=== PATIENT | female | born 1960 | race American Indian/Alaskan Native ===

== ENCOUNTER 2017-01-16 19:32 | Emergency (ER) | payer MEDICARE ==
[2017-01-16 19:58] VITALS: BP 147/101
[2017-01-16 20:48] LABS: Anion Gap 16 mmol/L; Blood Urea Nitrogen 4 mg/dL (7-17); Calcium 9.5 mg/dL (8.4-10.2); Carbon Dioxide 31 mmol/L (22-30); Chloride 98.5 mmol/L (98-107); Glucose 97 mg/dL (65-100); Potassium 4.3 mmol/L (3.6-5.0); Sodium 141 mmol/L (137-145)
[2017-01-16 21:01] LABS: Basophils % (Auto) 0.7 % (0.0-1.8); Eosinophils % (Auto) 3.8 % (0.0-4.3); Hematocrit 41.7 % (30.3-42.9); Mean Corpuscular HGB Conc 34 % (30-34); Mean Corpuscular Hemoglobin 30 pg (28-32); Mean Corpuscular Volume 89 fl (79-97); Platelet Count 285 K/mm3 (140-440); Red Blood Count 4.68 M/mm3 (3.65-5.03); Red Cell Distribution Width 13.1 % (13.2-15.2); White Blood Count 9.7 K/mm3 (4.5-11.0)
[2017-01-16 21:14] LABS: Bacteria,Urine 1+ /HPF (Negative); Bilirubin,Urine NEG (Negative); Blood,Urine MOD (Negative); Ketones,Urine NEG (Negative); Leukocyte Esterase,Urine LG (Negative); Mucus,Urine FEW /HPF; Nitrite,Urine POS (Negative)
--- NOTE | 2017-01-16 22:19 | Emergency Department Report ---
ED Female HPI - General Chief complaint: Urogenital-Female Stated complaint: VAG BLEEDING/PAIN/BACK PAIN Time Seen by Provider: 01/16/17 22:10 Source: patient Mode of arrival: Ambulatory Limitations: No Limitations - History of Present Illness Initial comments: 56-year-old -[place] female comes in with a complaint of dysuria and lower back pain and pain with urination. She reports she is sexually active with one partner. She does admit that after having intercourse she just lays here. She complains of urgency frequency. On the medication she takes a tramadol for chronic back pain. Patient denies any vaginal bleeding or vaginal discharge. MD Complaint: dysuria, pelvic pain - Related Data Previous Rx's Medication Instructions Recorded Last Taken Type Fluconazole [Diflucan TAB] 150 mg PO ONCE #1 tablet 07/27/16 Unknown Rx HYDROcodone/APAP 5-325 [[place] 1 each PO Q6HR PRN #7 tablet 07/27/16 Unknown Rx 5/325] Sulfamethoxazole/Trimethoprim 1 each PO BID #14 tablet 07/27/16 Unknown Rx [Bactrim DS TAB] Nitrofurantoin [place]/M-Cryst 100 mg PO Q12HR #14 capsule 01/16/17 Unknown Rx [Macrobid CAP] Phenazopyridine [Pyridium] 100 mg PO TID #9 tab 01/16/17 Unknown Rx Allergies Allergy/AdvReac Type Severity Reaction Status Date / Time No Known Allergies Allergy Unverified 08/05/13 12:50 ED Review of Systems ROS: Stated complaint: VAG BLEEDING/PAIN/BACK PAIN Other details as noted in HPI Constitutional: denies: chills, fever ENT: denies: ear pain, throat pain Respiratory: denies: cough, shortness of breath, wheezing Cardiovascular: denies: chest pain, palpitations Endocrine: no symptoms reported Gastrointestinal: denies: abdominal pain, nausea, diarrhea Genitourinary: urgency, dysuria, frequency, hematuria Musculoskeletal: other (flank pain) Neurological: denies: headache, weakness, paresthesias Psychiatric: denies: anxiety, depression Hematological/Lymphatic: denies: easy bleeding, easy bruising ED Past Medical Hx - Past Medical History Previous Medical History?: No - Surgical History Past Surgical History?: Yes Additional Surgical History: left ankle surgery. - Social History Smoking Status: Never Smoker Substance Use Type: None - Medications Home Medications: Home Medications Medication Instructions Recorded Confirmed Last Taken Type Fluconazole [Diflucan TAB] 150 mg PO ONCE #1 tablet 07/27/16 Unknown Rx HYDROcodone/APAP 5-325 [[place] 1 each PO Q6HR PRN #7 tablet 07/27/16 Unknown Rx 5/325] Sulfamethoxazole/Trimethoprim 1 each PO BID #14 tablet 07/27/16 Unknown Rx [Bactrim DS TAB] Nitrofurantoin [place]/M-Cryst 100 mg PO Q12HR #14 capsule 01/16/17 Unknown Rx [Macrobid CAP] Phenazopyridine [Pyridium] 100 mg PO TID #9 tab 01/16/17 Unknown Rx ED Physical Exam - General Limitations: No Limitations General appearance: alert, in no apparent distress - Head Head exam: Present: atraumatic, normocephalic - Eye Eye exam: Present: normal appearance - ENT ENT exam: Present: mucous membranes moist - Cardiovascular Cardiovascular Exam: Present: regular rate, normal rhythm. Absent: systolic murmur, diastolic murmur, rubs, gallop - GI/Abdominal GI/Abdominal exam: Present: soft, tenderness (pelvic tenderness), normal bowel sounds - Extremities Exam Extremities exam: Present: normal inspection ED Course Vital Signs 01/16/17 19:51 Temperature 98.4 F Pulse Rate 85 Respiratory 18 Rate Blood Pressure 147/101 Blood Pressure 147/101 [Left] O2 Sat by Pulse 98 Oximetry ED Medical Decision Making - Lab Data Result diagrams: 01/16/17 20:12 01/16/17 20:12 - Medical Decision Making Patient's been evaluated by this provider fast track. Discussed the patient she has a urinary tract infection. Discussed the patient that she needs to void after having sexual intercourse. Discussed patient to take medication as prescribed and she can follow up with her primary care doctor within 5-7 days if symptoms has not improved. Patient verbalized understanding Critical care attestation.: If time is entered above; I have spent that time in minutes in the direct care of this critically ill patient, excluding procedure time. ED Disposition Clinical Impression: UTI (urinary tract infection) Qualifiers: Urinary tract infection type: site unspecified Hematuria presence: with hematuria Qualified Code(s): N39.0 - Urinary tract infection, site not specified ; R31.9 - Hematuria, unspecified Disposition: DISCHARGED TO HOME OR SELFCARE Is pt being admited?: No Does the pt Need Aspirin: No Condition: Stable Instructions: Urinary Tract Infection in Women (ED) Additional Instructions: Please take antibiotics as prescribed. Please void after having sexual intercourse. Follow-up to primary care provider in 5-7 days if symptoms persists or gets worse. Prescriptions: Nitrofurantoin [place]/M-Cryst [Macrobid CAP] 100 mg PO Q12HR #14 capsule Phenazopyridine [Pyridium] 100 mg PO TID #9 tab Referrals: FRITZ HALL DO [Primary Care Provider] - 3-5 Days Forms: Work/School Release Form(ED)
== END 2017-01-16 22:26 | disposition home or self-care (01) ==
LOC: ED 19:32
DX: N39.0 Urinary tract infection, site not specified (principal); R31.9 Hematuria, unspecified
CPT/HCPCS: 36415; 80048; 81001; 81025; 85025; 87076; 87086; 87186; 99283

== ENCOUNTER 2017-03-31 09:11 | Emergency (ER) | payer MEDICARE ==
--- NOTE | 2017-03-31 12:13 | Emergency Department Report ---
ED General Adult HPI - General Chief complaint: Skin/Abscess/Foreign Body Stated complaint: QTIP STUCK IN RT EAR/ EYE SWOLLEN Time Seen by Provider: 03/31/17 12:07 Source: patient Mode of arrival: Ambulatory Limitations: No Limitations - History of Present Illness Initial comments: foreign body left ear x 1 week Onset/Timin -: week(s) Location: right (right ear ) Radiation: non-radiation Severity scale (0 -10): 3 Quality: aching Consistency: intermittent Improves with: none Worsens with: none Associated Symptoms: denies other symptoms Treatments Prior to Arrival: none - Related Data Previous Rx's Medication Instructions Recorded Last Taken Type Fluconazole [Diflucan TAB] 150 mg PO ONCE #1 tablet 07/27/16 Unknown Rx HYDROcodone/APAP 5-325 [[place] 1 each PO Q6HR PRN #7 tablet 07/27/16 Unknown Rx 5/325] Sulfamethoxazole/Trimethoprim 1 each PO BID #14 tablet 07/27/16 Unknown Rx [Bactrim DS TAB] Nitrofurantoin [place]/M-Cryst 100 mg PO Q12HR #14 capsule 01/16/17 Unknown Rx [Macrobid CAP] Phenazopyridine [Pyridium] 100 mg PO TID #9 tab 01/16/17 Unknown Rx Cipro/Dexameth 0.3/0.1% [Ciprodex 4 drops OT BID #1 bottle 03/31/17 Unknown Rx OTIC] Allergies Allergy/AdvReac Type Severity Reaction Status Date / Time No Known Allergies Allergy Unverified 08/05/13 12:50 ED Review of Systems ROS: Stated complaint: QTIP STUCK IN RT EAR/ EYE SWOLLEN Other details as noted in HPI Constitutional: denies: chills, fever Eyes: denies: eye pain, eye discharge, vision change ENT: other (foreign body right ear ) Respiratory: denies: cough, shortness of breath, wheezing Cardiovascular: denies: chest pain, palpitations Endocrine: no symptoms reported Gastrointestinal: denies: abdominal pain, nausea, diarrhea Genitourinary: denies: urgency, dysuria, discharge Musculoskeletal: denies: back pain, joint swelling, arthralgia Skin: denies: rash, lesions Neurological: denies: headache, weakness, paresthesias Psychiatric: denies: anxiety, depression Hematological/Lymphatic: denies: easy bleeding, easy bruising ED Past Medical Hx - Past Medical History Previous Medical History?: No - Surgical History Past Surgical History?: Yes Additional Surgical History: left ankle surgery. - Social History Smoking Status: Never Smoker Substance Use Type: None - Medications Home Medications: Home Medications Medication Instructions Recorded Confirmed Last Taken Type Fluconazole [Diflucan TAB] 150 mg PO ONCE #1 tablet 07/27/16 Unknown Rx HYDROcodone/APAP 5-325 [[place] 1 each PO Q6HR PRN #7 tablet 07/27/16 Unknown Rx 5/325] Sulfamethoxazole/Trimethoprim 1 each PO BID #14 tablet 07/27/16 Unknown Rx [Bactrim DS TAB] Nitrofurantoin [place]/M-Cryst 100 mg PO Q12HR #14 capsule 01/16/17 Unknown Rx [Macrobid CAP] Phenazopyridine [Pyridium] 100 mg PO TID #9 tab 01/16/17 Unknown Rx Cipro/Dexameth 0.3/0.1% [Ciprodex 4 drops OT BID #1 bottle 03/31/17 Unknown Rx OTIC] ED Physical Exam - General Limitations: No Limitations General appearance: alert, in no apparent distress - Head Head exam: Present: atraumatic - Eye Eye exam: Present: normal appearance - ENT ENT exam: Present: mucous membranes moist, other (foreign body right ear ) - Neck Neck exam: Present: normal inspection, full ROM. Absent: tenderness, lymphadenopathy, thyromegaly - Respiratory Respiratory exam: Present: normal lung sounds bilaterally. Absent: respiratory distress - Cardiovascular Cardiovascular Exam: Present: regular rate, normal rhythm. Absent: systolic murmur, diastolic murmur, rubs, gallop - GI/Abdominal GI/Abdominal exam: Present: soft, normal bowel sounds - Rectal Rectal exam: Present: deferred - Extremities Exam Extremities exam: Present: normal inspection - Back Exam Back exam: Present: normal inspection - Neurological Exam Neurological exam: Present: alert, oriented X3 - Psychiatric Psychiatric exam: Present: normal affect, normal mood - Skin Skin exam: Present: warm, dry, intact, normal color. Absent: rash ED Course Vital Signs 03/31/17 09:14 Temperature 98.8 F Pulse Rate 76 Respiratory 20 Rate Blood Pressure 138/98 O2 Sat by Pulse 99 Oximetry - Foreign Body Removal Ear Location: ear canal (R) Foreign Body Suspected: other (qtip) If Insect Suspected: ear canal inspected-intac Foreign Body Removed: yes Foreign Body Removal Technique: instrumentation Tympanic Membrane Intact: Yes Patient Tolerated Procedure: well Complications: none Additional Comments: q tip removed intact tm and canal moderate erythema and swelling no tinnitis no bleeding ED Medical Decision Making - Medical Decision Making pt presents for qtip lodged in right ear x 1 week same removed with alligator clamp pt tolerated same with minimal distress, plan ciprodex eardrops x 5 days follwo up with primary care doctor next week as scheduled , pt verbalized understanding and agreement with treatment plan. Critical care attestation.: If time is entered above; I have spent that time in minutes in the direct care of this critically ill patient, excluding procedure time. ED Disposition Clinical Impression: Foreign body in right ear, initial encounter Qualifiers: Encounter type: initial encounter Qualified Code(s): T16.1XXA - Foreign body in right ear, initial encounter Disposition: DC-01 TO HOME OR SELFCARE Is pt being admited?: No Does the pt Need Aspirin: No Condition: Good Instructions: Ear Foreign Body (ED) Prescriptions: Cipro/Dexameth 0.3/0.1% [Ciprodex OTIC] 4 drops OT BID #1 bottle Referrals: PRIMARY CARE, [Primary Care Provider] - 3-5 Days Forms: Work/School Release Form(ED) Time of Disposition: 12:16
[2017-03-31 12:32] VITALS: BP 129/88
== END 2017-03-31 12:32 | disposition home or self-care (01) ==
LOC: ED 09:11
DX: T16.1XXA Foreign body in right ear, initial encounter (principal); X58.XXXA Exposure to other specified factors, initial encounter; Y93.89 Activity, other specified; Y99.9 Unspecified external cause status; Y92.89 Other specified places as the place of occurrence of the external cause

== ENCOUNTER 2018-06-22 12:24 | Emergency (ER) | payer MEDICARE ==
[2018-06-22 12:40] VITALS: BP 127/85
[2018-06-22] MEDS ORDERED: BACTRIM DS PO ONE (13:17)
[2018-06-22] MEDS ORDERED: PYRIDIUM PO ONE (13:17)
--- NOTE | 2018-06-22 13:22 | Emergency Department Report ---
ED Female HPI - General Chief complaint: Urogenital-Female Stated complaint: LOWER BACK PAIN Time Seen by Provider: 06/22/18 13:09 Source: patient Mode of arrival: Ambulatory Limitations: No Limitations - History of Present Illness Initial comments: Ms. Carpenter is a 57 yo female with presents with dysuria, bloody cloudy urine. Frequent urination. No fever +malaise. Patient has chronic back pain due to previous injury which is unchanged. MD Complaint: dysuria -: Gradual, days(s) (2) Severity: moderate Quality: stabbing Worsens with: urination Associated Symptoms: denies other symptoms - Related Data Previous Rx's Medication Instructions Recorded Last Taken Type Fluconazole [Diflucan TAB] 150 mg PO ONCE #1 tablet 07/27/16 Unknown Rx HYDROcodone/APAP 5-325 [[place] 1 each PO Q6HR PRN #7 tablet 07/27/16 Unknown Rx 5/325] Sulfamethoxazole/Trimethoprim 1 each PO BID #14 tablet 07/27/16 Unknown Rx [Bactrim DS TAB] Nitrofurantoin [place]/M-Cryst 100 mg PO Q12HR #14 capsule 01/16/17 Unknown Rx [Macrobid CAP] Phenazopyridine [Pyridium] 100 mg PO TID #9 tab 01/16/17 Unknown Rx Cipro/Dexameth 0.3/0.1% [Ciprodex 4 drops OT BID #1 bottle 03/31/17 Unknown Rx OTIC] Phenazopyridine [Pyridium] 200 mg PO TID 2 Days #6 tab 06/22/18 Unknown Rx Sulfamethoxazole/Trimethoprim 1 each PO BID 5 Days #10 tablet 06/22/18 Unknown Rx [Bactrim DS TAB] Allergies Allergy/AdvReac Type Severity Reaction Status Date / Time No Known Allergies Allergy Unverified 08/05/13 12:50 ED Review of Systems ROS: Stated complaint: LOWER BACK PAIN Other details as noted in HPI Constitutional: malaise. denies: fever Cardiovascular: denies: chest pain Gastrointestinal: denies: abdominal pain, nausea, vomiting Neurological: denies: numbness, paresthesias, confusion ED Past Medical Hx - Past Medical History Previous Medical History?: No - Surgical History Past Surgical History?: Yes Additional Surgical History: left ankle surgery. - Social History Smoking Status: Never Smoker Substance Use Type: None - Medications Home Medications: Home Medications Medication Instructions Recorded Confirmed Last Taken Type Fluconazole [Diflucan TAB] 150 mg PO ONCE #1 tablet 07/27/16 Unknown Rx HYDROcodone/APAP 5-325 [[place] 1 each PO Q6HR PRN #7 tablet 07/27/16 Unknown Rx 5/325] Sulfamethoxazole/Trimethoprim 1 each PO BID #14 tablet 07/27/16 Unknown Rx [Bactrim DS TAB] Nitrofurantoin [place]/M-Cryst 100 mg PO Q12HR #14 capsule 01/16/17 Unknown Rx [Macrobid CAP] Phenazopyridine [Pyridium] 100 mg PO TID #9 tab 01/16/17 Unknown Rx Cipro/Dexameth 0.3/0.1% [Ciprodex 4 drops OT BID #1 bottle 03/31/17 Unknown Rx OTIC] Phenazopyridine [Pyridium] 200 mg PO TID 2 Days #6 tab 06/22/18 Unknown Rx Sulfamethoxazole/Trimethoprim 1 each PO BID 5 Days #10 tablet 06/22/18 Unknown Rx [Bactrim DS TAB] ED Physical Exam - General Limitations: No Limitations General appearance: alert, in no apparent distress - Head Head exam: Present: atraumatic, normocephalic - Eye Eye exam: Present: normal appearance - ENT ENT exam: Present: mucous membranes moist - Neck Neck exam: Present: normal inspection. Absent: tenderness, meningismus - Respiratory Respiratory exam: Present: normal lung sounds bilaterally. Absent: respiratory distress, wheezes, rales, rhonchi - Cardiovascular Cardiovascular Exam: Present: regular rate, normal rhythm, normal heart sounds. Absent: systolic murmur, diastolic murmur, rubs, gallop - GI/Abdominal GI/Abdominal exam: Present: soft, normal bowel sounds. Absent: distended, tenderness, guarding, rebound - Extremities Exam Extremities exam: Present: normal inspection - Back Exam Back exam: Present: normal inspection, full ROM. Absent: tenderness, CVA tenderness (R), CVA tenderness (L) - Neurological Exam Neurological exam: Present: alert, oriented X3, normal gait - Psychiatric Psychiatric exam: Present: normal affect, normal mood - Skin Skin exam: Present: warm, dry, intact, normal color. Absent: rash ED Course Vital Signs 06/22/18 12:36 Temperature 98.6 F Pulse Rate 99 H Respiratory 18 Rate Blood Pressure 127/85 O2 Sat by Pulse 98 Oximetry ED Medical Decision Making - Medical Decision Making UTI, no not suspect pyelonephritis without fever or new back pain. rx: bactrim , pyridium I reviewed urine culture results from 01/2017, patient has pansensitive E. coli at that time Critical care attestation.: If time is entered above; I have spent that time in minutes in the direct care of this critically ill patient, excluding procedure time. ED Disposition Clinical Impression: UTI (urinary tract infection) Disposition: TO HOME OR SELFCARE Is pt being admited?: No Does the pt Need Aspirin: No Condition: Stable Instructions: Urinary Tract Infection in Women (ED) Prescriptions: Phenazopyridine [Pyridium] 200 mg PO TID 2 Days #6 tab Sulfamethoxazole/Trimethoprim [Bactrim DS TAB] 1 each PO BID 5 Days #10 tablet Referrals: PRIMARY CARE, [Primary Care Provider] - 3-5 Days
[2018-06-22 13:41] LABS: Bilirubin,Urine NEG (Negative); Blood,Urine LG (Negative); Color,Urine Yellow (Yellow); Urobilinogen,Urine < 2.0 mg/dL (<2.0)
[2018-06-22 13:43] LABS: RBC,Urine > 182.0 /HPF (0.0-6.0); WBC,Urine > 182.0 /HPF (0.0-6.0)
== END 2018-06-22 13:55 | disposition home or self-care (01) ==
LOC: ED 12:24
DX: N39.0 Urinary tract infection, site not specified (principal)
CPT/HCPCS: 81001; 99283

== ENCOUNTER 2019-03-03 06:11 | Emergency (ER) | payer MEDICARE ==
[2019-03-03 07:16] LABS: Bilirubin,Urine NEG (Negative); Blood,Urine LG (Negative); Color,Urine Red (Yellow); Urobilinogen,Urine < 2.0 mg/dL (<2.0)
[2019-03-03 07:21] LABS: Basophils # (Auto) 0.1 K/mm3 (0.0-0.1); Basophils % (Auto) 1.3 % (0.0-1.8); Eosinophils # (Auto) 0.5 K/mm3 (0.0-0.4); Eosinophils % (Auto) 6.8 % (0.0-4.3); Hematocrit 41.8 % (30.3-42.9); Hemoglobin 14.2 gm/dl (10.1-14.3); Lymphocytes # (Auto) 2.6 K/mm3 (1.2-5.4); Lymphocytes % (Auto) 33.8 % (13.4-35.0); Mean Corpuscular HGB Conc 34 % (30-34); Mean Corpuscular Volume 91 fl (79-97); Monocytes # (Auto) 0.6 K/mm3 (0.0-0.8); Platelet Count 319 K/mm3 (140-440); Red Blood Count 4.62 M/mm3 (3.65-5.03); Red Cell Distribution Width 13.6 % (13.2-15.2)
[2019-03-03 07:26] LABS: RBC,Urine > 182.0 /HPF (0.0-6.0); WBC,Urine > 182.0 /HPF (0.0-6.0)
[2019-03-03] MEDS ORDERED: ZOFRAN IV ONE (07:28)
[2019-03-03] MEDS ORDERED: DILAUDID IV ONE (07:28)
[2019-03-03] MEDS ORDERED: ROCEPHIN/NS 1 GM/50 ML 1 GM/50 ML BAG IV ONE (07:32)
[2019-03-03] MEDS ORDERED: TORADOL IV ONE (07:36)
--- NOTE | 2019-03-03 07:37 | Emergency Department Report ---
ED Female HPI - General Chief complaint: Abdominal Pain Stated complaint: BLEEDING/PAIN IN PELVIC AREA Time Seen by Provider: 03/03/19 07:21 Source: patient Mode of arrival: Ambulatory Limitations: No Limitations - History of Present Illness Initial comments: 58 year old female with a past medical history of chronic back pain and previous presents to the Hospital complaining of fever to don a pain and hematuria. Patient started to have pink urine yesterday which worsened to gross hematuria today. Patient has also had been intermittent suprapubic sharp and stabbing pain for the last 2 days with a palpation. Pain is rated 10/10 intens ity without alleviating factors reported. Patient denies nausea, vomiting, fever, or back pain. Patient was here in June 2018 with similar symptoms with diagnosis of UTI. She states that her hematuria this time is worse than her previous episode. Patient presents with elevated blood pressure and states that she does not have a history of hypertension and suspects that the elevation is secondary to pain. Patient takes baby aspirin daily and denies any anticoagulant use - Related Data Previous Rx's Medication Instructions Recorded Last Taken Type Fluconazole [Diflucan TAB] 150 mg PO ONCE #1 tablet 07/27/16 Unknown Rx HYDROcodone/APAP 5-325 [[place] 1 each PO Q6HR PRN #7 tablet 07/27/16 Unknown Rx 5/325] Nitrofurantoin [place]/M-Cryst 100 mg PO Q12HR #14 capsule 01/16/17 Unknown Rx [Macrobid CAP] Phenazopyridine [Pyridium] 100 mg PO TID #9 tab 01/16/17 Unknown Rx Cipro/Dexameth 0.3/0.1% [Ciprodex 4 drops OT BID #1 bottle 03/31/17 Unknown Rx OTIC] Phenazopyridine [Pyridium] 200 mg PO TID 2 Days #6 tab 06/22/18 Unknown Rx Sulfamethoxazole/Trimethoprim 1 each PO BID 5 Days #10 tablet 06/22/18 Unknown Rx [Bactrim DS TAB] HYDROcodone/APAP 5-325 [[place] 1 each PO Q6HR PRN #15 tablet 03/03/19 Unknown Rx 5/325] Ibuprofen [Motrin] 800 mg PO Q8HR PRN #30 tablet 03/03/19 Unknown Rx Ondansetron [Zofran Odt] 4 mg PO Q8HR PRN #20 tab.rapdis 03/03/19 Unknown Rx Sulfamethoxazole/Trimethoprim 1 each PO BID #14 tablet 03/03/19 Unknown Rx [Bactrim DS TAB] Allergies Allergy/AdvReac Type Severity Reaction Status Date / Time No Known Allergies Allergy Unverified 08/05/13 12:50 ED Review of Systems ROS: Stated complaint: BLEEDING/PAIN IN PELVIC AREA Other details as noted in HPI Comment: All other systems reviewed and negative ED Past Medical Hx - Past Medical History Previous Medical History?: Yes Additional medical history: Chronic Back Pain - Surgical History Past Surgical History?: Yes Additional Surgical History: left ankle surgery. - Social History Smoking Status: Never Smoker Substance Use Type: None - Medications Home Medications: Home Medications Medication Instructions Recorded Confirmed Last Taken Type Fluconazole [Diflucan TAB] 150 mg PO ONCE #1 tablet 07/27/16 Unknown Rx HYDROcodone/APAP 5-325 [[place] 1 each PO Q6HR PRN #7 tablet 07/27/16 Unknown Rx 5/325] Nitrofurantoin [place]/M-Cryst 100 mg PO Q12HR #14 capsule 01/16/17 Unknown Rx [Macrobid CAP] Phenazopyridine [Pyridium] 100 mg PO TID #9 tab 01/16/17 Unknown Rx Cipro/Dexameth 0.3/0.1% [Ciprodex 4 drops OT BID #1 bottle 03/31/17 Unknown Rx OTIC] Phenazopyridine [Pyridium] 200 mg PO TID 2 Days #6 tab 06/22/18 Unknown Rx Sulfamethoxazole/Trimethoprim 1 each PO BID 5 Days #10 tablet 06/22/18 Unknown Rx [Bactrim DS TAB] HYDROcodone/APAP 5-325 [[place] 1 each PO Q6HR PRN #15 tablet 03/03/19 Unknown Rx 5/325] Ibuprofen [Motrin] 800 mg PO Q8HR PRN #30 tablet 03/03/19 Unknown Rx Ondansetron [Zofran Odt] 4 mg PO Q8HR PRN #20 tab.rapdis 03/03/19 Unknown Rx Sulfamethoxazole/Trimethoprim 1 each PO BID #14 tablet 03/03/19 Unknown Rx [Bactrim DS TAB] ED Physical Exam - General Limitations: No Limitations - Other Other exam information: General: No limitations, patient is alert in no acute distress Head exam: Atraumatic, normocephalic Eyes exam: Normal appearance ENT: Moist mucous membrane, normal oropharynx Neck exam: Normal inspection, full range of motion, no meningismus nontender Respiratory exam: Clear to auscultation bilateral, no wheezes, rales, crackles Cardiovascular: Normal rate and rhythm, normal heart sounds Abdomen: Soft, nondistended, suprapubic tenderness, with normal bowel sounds, no rebound, or guarding Extremity: Full range of motion normal inspection no deformity Back: Normal Inspection, full range of motion, no tenderness Neurologic: Alert, oriented x3, cranial nerves intact, no motor or sensory deficit Psychiatric: normal affect, normal mood Skin: Warm, dry, intact ED Course Vital Signs 03/03/19 03/03/19 03/03/19 06:20 07:00 07:45 Temperature 98.7 F Pulse Rate 76 Respiratory 20 18 Rate Blood Pressure 169/103 136/84 O2 Sat by Pulse 98 97 94 Oximetry ED Medical Decision Making - Lab Data Result diagrams: 03/03/19 07:11 03/03/19 07:11 Lab Results 03/03/19 03/03/19 03/03/19 Range/Units 07:11 07:11 Unknown WBC 7.6 (4.5-11.0) K/mm3 RBC 4.62 (3.65-5.03) M/mm3 Hgb 14.2 (10.1-14.3) gm/dl Hct 41.8 (30.3-42.9) % MCV 91 (79-97) fl MCH 31 (28-32) pg MCHC 34 (30-34) % RDW 13.6 (13.2-15.2) % Plt Count 319 (140-440) K/mm3 Lymph % (Auto) 33.8 (13.4-35.0) % Becker % (Auto) 8.0 H (0.0-7.3) % Eos % (Auto) 6.8 H (0.0-4.3) % Baso % (Auto) 1.3 (0.0-1.8) % Lymph # 2.6 (1.2-5.4) K/mm3 Becker # 0.6 (0.0-0.8) K/mm3 Eos # 0.5 H (0.0-0.4) K/mm3 Baso # 0.1 (0.0-0.1) K/mm3 Seg Neutrophils % 50.1 (40.0-70.0) % Seg Neutrophils # 3.8 (1.8-7.7) K/mm3 Sodium 138 (137-145) mmol/L Potassium 4.2 (3.6-5.0) mmol/L Chloride 101.9 (98-107) mmol/L Carbon Dioxide 25 (22-30) mmol/L Anion Gap 15 mmol/L BUN 11 (7-17) mg/dL Creatinine 0.9 (0.7-1.2) mg/dL Estimated GFR > 60 ml/min BUN/Creatinine Ratio 12 % Glucose 129 H (65-100) mg/dL Calcium 8.6 (8.4-10.2) mg/dL Urine Color Red (Yellow) Urine Turbidity Cloudy (Clear) Urine pH 6.0 (5.0-7.0) Ur Specific [place] 1.015 (1.003-1.030) Urine Protein 100 mg/dl (Negative) mg/dL Urine Glucose (UA) Neg (Negative) mg/dL Urine Ketones Neg (Negative) mg/dL Urine Blood Lg (Negative) Urine Nitrite Neg (Negative) Urine Bilirubin Neg (Negative) Urine Urobilinogen < 2.0 (<2.0) mg/dL Ur Leukocyte Esterase Mod (Negative) Urine WBC (Auto) > 182.0 H (0.0-6.0) /HPF Urine RBC (Auto) > 182.0 (0.0-6.0) /HPF Urine WBC Clumps 2+ /HPF - Radiology Data Radiology results: report reviewed CT ABDOMEN AND PELVIS WITHOUT CONTRAST HISTORY: gross hematuria. COMPARISON: 07/27/2016 TECHNIQUE: CT images of the abdomen and pelvis were obtained without administration of intravenous contrast. All CT scans at this location are performed using CT dose reduction for ALARA by means of automated exposure control. FINDINGS: Lungs/bones: The lung bases are clear. Normal heart size. Chronic L2 fracture with 20% loss of height is identified. The remaining bony structures are intact. Mild spondylosis is noted Abdomen/pelvis: The liver is normal size and attenuation. 1 cm right hepatic lobe cyst is unchanged. Normal biliary system, pancreas, spleen and adrenal glands. The kidneys are normal size, contour and position. A 6.7 mm calyceal stone is identified at the inferior pole of the left kidney. No right nephrolithiasis or ureteral stones are identified. The bladder is unremarkable. The uterus and adnexa are within normal limits. Scattered pelvic phleboliths are noted. The bowel loops and appendix are unremarkable. No obstruction or focal inflammation. The aorta is normal caliber. No ascites, bulky adenopathy or free air. Small umbilical hernia containing fat. IMPRESSION: 1. 6.7 mm left renal calculus, nonobstructing. No ureteral stones are ident ified. - Medical Decision Making Patient has a renal stone without any ureteral stone. Positive UTI without signs of sepsis or clinical findings of pyelonephritis. Patient received IV Rocephin, pain medicine, and nausea medication here. Will be discharged with meds for UTI and urology and follow-up. urine culture pending. Blood pressure improved with pain management - Differential Diagnosis UTI, cystitis, polynephritis, renal colic, hemorrhagic cyst, Critical Care Time: No Critical care attestation.: If time is entered above; I have spent that time in minutes in the direct care of this critically ill patient, excluding procedure time. ED Disposition Clinical Impression: UTI (urinary tract infection), Left renal stone Disposition: TO HOME OR SELFCARE Is pt being admited?: No Does the pt Need Aspirin: No Condition: Stable Instructions: Urinary Tract Infection in Women (ED), Kidney Stones (ED) Additional Instructions: Take the medication as prescribed. Follow up with your doctor or the clinic/doctor provided. Return if symptoms worsen as indicated by your discharge instructions . Take the copy of the CAT scan report and labs to your doctor for follow-up. Prescriptions: Sulfamethoxazole/Trimethoprim [Bactrim DS TAB] 1 each PO BID #14 tablet Ibuprofen [Motrin] 800 mg PO Q8HR PRN #30 tablet PRN Reason: Pain, Moderate (4-6) HYDROcodone/APAP 5-325 [[place] 5/325] 1 each PO Q6HR PRN #15 tablet PRN Reason: Pain Ondansetron [Zofran Odt] 4 mg PO Q8HR PRN #20 tab.rapdis PRN Reason: Nausea And Vomiting Referrals: FRITZ HALL [Primary Care Provider] - 3-5 Days SHELLEY GAXIOLA MD [Staff Physician] - 3-5 Days (Urologist ) Time of Disposition: 10:15
[2019-03-03 07:45] LABS: BUN/Creatinine Ratio 12; Blood Urea Nitrogen 11 mg/dL (7-17); Calcium 8.6 mg/dL (8.4-10.2); Hemolysis Index 16
--- NOTE | 2019-03-03 08:47 | Cat Scan Report ---
CT ABDOMEN AND PELVIS WITHOUT CONTRAST HISTORY: gross hematuria. COMPARISON: 07/27/2016 TECHNIQUE: CT images of the abdomen and pelvis were obtained without administration of intravenous co ntrast. All CT scans at this location are performed using CT dose reduction for ALARA by means of au tomated exposure control. FINDINGS: Lungs/bones: The lung bases are clear. Normal heart size. Chronic L2 fracture with 20% loss of heigh t is identified. The remaining bony structures are intact. Mild spondylosis is noted Abdomen/pelvis: The liver is normal size and attenuation. 1 cm right hepatic lobe cyst is unchanged. Normal biliary system, pancreas, spleen and adrenal glands. The kidneys are normal size, contour and position. A 6.7 mm calyceal stone is identified at the infer ior pole of the left kidney. No right nephrolithiasis or ureteral stones are identified. The bladder is unremarkable. The uterus and adnexa are within normal limits. Scattered pelvic phleboliths are noted. The bowel loops and appendix are unremarkable. No obstruction or focal inflammation. The aorta is normal caliber. No ascites, bulky adenopathy or free air. Small umbilical hernia containing fat. IMPRESSION: 1. 6.7 mm left renal calculus, nonobstructing. No ureteral stones are identified. Signer Name: Surjit Hwang Jr, MD Signed: 03/03/2019 9:42 AM Workstation Name: [id number]
[2019-03-03 10:30] VITALS: BP 133/78
== END 2019-03-03 10:30 | disposition home or self-care (01) ==
LOC: ED 06:11
DX: N39.0 Urinary tract infection, site not specified (principal); N20.0 Calculus of kidney; G89.29 Other chronic pain; M54.9 Dorsalgia, unspecified; Z79.899 Other long term (current) drug therapy
CPT/HCPCS: 36415; 74176; 80048; 81001; 85025; 87086; 96365; 96375; 99284; J0696; J1170; J1885; J2405; 96361; 96374

== ENCOUNTER 2019-10-09 08:45 | Emergency (ER) | payer MEDICARE ==
[2019-10-09 09:19] LABS: Bacteria,Urine 1+ /HPF (Negative); Bilirubin,Urine NEG (Negative); Blood,Urine LG (Negative); Color,Urine Yellow (Yellow); Mucus,Urine FEW /HPF; Urobilinogen,Urine < 2.0 mg/dL (<2.0); WBC,Urine > 182.0 /HPF (0.0-6.0)
--- NOTE | 2019-10-09 11:31 | Emergency Department Report ---
ED Dysuria HPI - HPI Chief Complaint: Abdominal Pain Stated Complaint: PAIN Time Seen by Provider: 10/09/19 11:19 Location of Discomfort: Urethra (dysuria) Severity: Mild Symptoms: Dysuria: Yes, Frequency: Yes, Suprapubic Pain: Yes, Flank Pain: No, Fever: No, Hematuria: No, Abdominal Pain: No, Previous UTI's: Yes Other History: This is a 68-year-old female presents complaining of lower pelvic suprapubic pain pain with urination the past couple of days. She denies fevers/chills/nausea vomiting. Patient states that she noticed some blood in her urine this morning. ED Review of Systems ROS: Stated complaint: PAIN Other details as noted in HPI Comment: All other systems reviewed and negative ED Past Medical Hx - Past Medical History Additional medical history: Chronic Back Pain - Surgical History Additional Surgical History: left ankle surgery. - Social History Smoking Status: Never Smoker Substance Use Type: Alcohol - Medications Home Medications: Home Medications Medication Instructions Recorded Confirmed Last Taken Type Fluconazole [Diflucan TAB] 150 mg PO ONCE #1 tablet 07/27/16 Unknown Rx HYDROcodone/APAP 5-325 [[place] 1 each PO Q6HR PRN #7 tablet 07/27/16 Unknown Rx 5/325] Nitrofurantoin [place]/M-Cryst 100 mg PO Q12HR #14 capsule 01/16/17 Unknown Rx [Macrobid CAP] Cipro/Dexameth 0.3/0.1% [Ciprodex 4 drops OT BID #1 bottle 03/31/17 Unknown Rx OTIC] Phenazopyridine [Pyridium] 200 mg PO TID 2 Days #6 tab 06/22/18 Unknown Rx HYDROcodone/APAP 5-325 [[place] 1 each PO Q6HR PRN #15 tablet 03/03/19 Unknown Rx 5/325] Ondansetron [Zofran Odt] 4 mg PO Q8HR PRN #20 tab.rapdis 03/03/19 Unknown Rx Sulfamethoxazole/Trimethoprim 1 each PO BID #14 tablet 03/03/19 Unknown Rx [Bactrim DS TAB] Ibuprofen [Motrin 800 MG tab] 800 mg PO Q8HR PRN #30 tablet 10/09/19 Unknown Rx Phenazopyridine [Pyridium] 100 mg PO TID #9 tab 10/09/19 Unknown Rx Sulfamethoxazole/Trimethoprim 1 each PO BID 5 Days #10 tablet 10/09/19 Unknown Rx [Bactrim DS TAB] Dysuria Exam - Exam General: Vital signs noted. No distress. Alert and acting appropriately. Exam: Yes Moist Mucous Membranes, No CVA Tenderness, No Abdominal Tenderness, No Rigidity or Guarding Labs: Lab Results 10/09/19 Range/Units Unknown Urine Color Yellow (Yellow) Urine Turbidity Slightly-cloudy (Clear) Urine pH 7.0 (5.0-7.0) Ur Specific [place] 1.004 (1.003-1.030) Urine Protein 30 mg/dl (Negative) mg/dL Urine Glucose (UA) Neg (Negative) mg/dL Urine Ketones Neg (Negative) mg/dL Urine Blood Lg (Negative) Urine Nitrite Neg (Negative) Urine Bilirubin Neg (Negative) Urine Urobilinogen < 2.0 (<2.0) mg/dL Ur Leukocyte Esterase Lg (Negative) Urine WBC (Auto) > 182.0 H (0.0-6.0) /HPF Urine RBC (Auto) 11.0 (0.0-6.0) /HPF U Epithel Cells (Auto) 2.0 (0-13.0) /HPF Urine Bacteria (Auto) 1+ (Negative) /HPF Urine WBC Clumps 3+ /HPF Urine Mucus Few /HPF ED Course Vital Signs 10/09/19 08:48 Temperature 97.8 F Pulse Rate 87 Respiratory 18 Rate Blood Pressure 171/101 O2 Sat by Pulse 96 Oximetry ED Medical Decision Making - Medical Decision Making 58-year-old female presents with acute cystitis with hematuria. Urinalysis shows full-blown UTI. Discussed findings with the patient. Vital signs are normal patient is in no acute distress. Patient has a history of hypertension and will take blood pressure medication upon return home. She wasn't symptomatic in the ED Discuss patient will be sent to prescription antibiotic to treat UTI. Discussed with the patient if any worsening symptoms or new onset of symptoms she will return to the ED Critical care attestation.: If time is entered above; I have spent that time in minutes in the direct care of this critically ill patient, excluding procedure time. ED Disposition Clinical Impression: Acute cystitis with hematuria, Acute pelvic pain Disposition: - TO HOME OR SELFCARE Is pt being admited?: No Does the pt Need Aspirin: No Condition: Stable Instructions: Urinary Tract Infection in Women (ED), Abdominal Pain (ED) Additional Instructions: Make sure to follow up with the primary care physician as discussed. Take all your medications as you've been prescribed. If you have any worsening symptoms or develop new symptoms please return to ED immediately. Prescriptions: Sulfamethoxazole/Trimethoprim [Bactrim DS TAB] 1 each PO BID 5 Days #10 tablet Ibuprofen [Motrin 800 MG tab] 800 mg PO Q8HR PRN #30 tablet PRN Reason: Pain, Moderate (4-6) Phenazopyridine [Pyridium] 100 mg PO TID #9 tab Referrals: [facility] [Outside] - 3-5 Days [facility] [Outside] - 3-5 Days Forms: Accompanied Note, Work/School Release Form(ED) Time of Disposition: 11:35
[2019-10-09 12:23] VITALS: BP 168/94
== END 2019-10-09 12:12 | disposition home or self-care (01) ==
LOC: ED 08:45
DX: N30.01 Acute cystitis with hematuria (principal); Z98.890 Other specified postprocedural states; Z79.899 Other long term (current) drug therapy
CPT/HCPCS: 81001

== ENCOUNTER 2020-10-14 11:25 | Emergency (ER) | payer MEDICARE ==
[2020-10-14] MEDS ORDERED: KETOROLAC 30 MG/1 ML INJ IM ONE (12:06)
[2020-10-14 12:47] LABS: Basophils # (Auto) 0.1 K/mm3 (0.0-0.1); Basophils % (Auto) 0.9 % (0.0-1.8); Eosinophils # (Auto) 0.5 K/mm3 (0.0-0.4); Eosinophils % (Auto) 7.6 % (0.0-4.3); Hemoglobin 13.8 gm/dl (10.1-14.3); Lymphocytes # (Auto) 2.6 K/mm3 (1.2-5.4); Lymphocytes % (Auto) 36.7 % (13.4-35.0); Mean Corpuscular HGB Conc 34 % (30-34); Mean Corpuscular Volume 92 fl (79-97); Monocytes # (Auto) 0.6 K/mm3 (0.0-0.8); Monocytes % (Auto) 7.9 % (0.0-7.3); Platelet Count 305 K/mm3 (140-440); Red Blood Count 4.47 M/mm3 (3.65-5.03); Red Cell Distribution Width 13.5 % (13.2-15.2)
[2020-10-14 12:50] LABS: Bilirubin,Urine NEG (Negative); Blood,Urine SM (Negative); Color,Urine Yellow (Yellow); Protein,Urine <15 mg/dL mg/dL (Negative); Urobilinogen,Urine < 2.0 mg/dL (<2.0)
[2020-10-14 12:53] LABS: HCG Qualitative,Urine Negative (Negative)
[2020-10-14 13:09] LABS: Alanine Aminotransferase 14 units/L (7-56); Albumin 4.1 g/dL (3.9-5); BUN/Creatinine Ratio 6; Blood Urea Nitrogen 6 mg/dL (7-17); Calcium 9.2 mg/dL (8.4-10.2); Hemolysis Index 8
--- NOTE | 2020-10-14 13:27 | Emergency Department Report ---
ED Abdominal Pain HPI - General Chief Complaint: Abdominal Pain Stated Complaint: SIDE PAIN Time Seen by Provider: 10/14/20 12:04 Source: patient Mode of arrival: Ambulatory Limitations: No Limitations - History of Present Illness Initial Comments: This is a 59-year-old female presents the ED complaining of right-sided flank pain with dysuria x1 week. Patient states she is having a little bit of burning with urination. Patient denies fever, chills, nausea, vomiting, chest pain, shortness of breath. Patient states that pain is localized to the left flank area. Patient denies any history of renal stones. MD Complaint: flank pain Severity scale (0 -10): 10 Quality: cramping, aching Consistency: intermittent Improves With: nothing Worsens With: nothing Associated Symptoms: denies: nausea, vomiting, diarrhea, fever - Related Data Previous Rx's Medication Instructions Recorded Last Taken Type Fluconazole (Nf) [Diflucan TAB] 150 mg PO ONCE #1 tablet 07/27/16 Unknown Rx HYDROcodone/APAP 5-325 [[place] 1 each PO Q6HR PRN #7 tablet 07/27/16 Unknown Rx 5/325] Nitrofurantoin [place]/M-Cryst 100 mg PO Q12HR #14 capsule 01/16/17 Unknown Rx [Macrobid CAP] Cipro/Dexameth 0.3/0.1% [Ciprodex 4 drops OT BID #1 bottle 03/31/17 Unknown Rx OTIC] Phenazopyridine [Pyridium] 200 mg PO TID 2 Days #6 tab 06/22/18 Unknown Rx HYDROcodone/APAP 5-325 [[place] 1 each PO Q6HR PRN #15 tablet 03/03/19 Unknown Rx 5/325] Ondansetron [Zofran Odt] 4 mg PO Q8HR PRN #20 tab.rapdis 03/03/19 Unknown Rx Sulfamethoxazole/Trimethoprim 1 each PO BID #14 tablet 03/03/19 Unknown Rx [Bactrim DS TAB] Phenazopyridine [Pyridium] 100 mg PO TID #9 tab 10/09/19 Unknown Rx Ibuprofen [Motrin 800 MG tab] 800 mg PO Q8HR PRN #30 tablet 10/14/20 Unknown Rx Sulfamethoxazole/Trimethoprim 1 each PO BID 7 Days #14 tablet 10/14/20 Unknown Rx [Bactrim DS TAB] Allergies Allergy/AdvReac Type Severity Reaction Status Date / Time No Known Allergies Allergy Verified 10/14/20 11:47 ED Review of Systems ROS: Stated complaint: SIDE PAIN Other details as noted in HPI Comment: All other systems reviewed and negative ED Past Medical Hx - Past Medical History Additional medical history: Chronic Back Pain - Surgical History Additional Surgical History: left ankle surgery. - Social History Smoking Status: Never Smoker Substance Use Type: None - Medications Home Medications: Home Medications Medication Instructions Recorded Confirmed Last Taken Type Fluconazole (Nf) [Diflucan TAB] 150 mg PO ONCE #1 tablet 07/27/16 Unknown Rx HYDROcodone/APAP 5-325 [[place] 1 each PO Q6HR PRN #7 tablet 07/27/16 Unknown Rx 5/325] Nitrofurantoin [place]/M-Cryst 100 mg PO Q12HR #14 capsule 01/16/17 Unknown Rx [Macrobid CAP] Cipro/Dexameth 0.3/0.1% [Ciprodex 4 drops OT BID #1 bottle 03/31/17 Unknown Rx OTIC] Phenazopyridine [Pyridium] 200 mg PO TID 2 Days #6 tab 06/22/18 Unknown Rx HYDROcodone/APAP 5-325 [[place] 1 each PO Q6HR PRN #15 tablet 03/03/19 Unknown Rx 5/325] Ondansetron [Zofran Odt] 4 mg PO Q8HR PRN #20 tab.rapdis 03/03/19 Unknown Rx Sulfamethoxazole/Trimethoprim 1 each PO BID #14 tablet 03/03/19 Unknown Rx [Bactrim DS TAB] Phenazopyridine [Pyridium] 100 mg PO TID #9 tab 10/09/19 Unknown Rx Ibuprofen [Motrin 800 MG tab] 800 mg PO Q8HR PRN #30 tablet 10/14/20 Unknown Rx Sulfamethoxazole/Trimethoprim 1 each PO BID 7 Days #14 tablet 10/14/20 Unknown Rx [Bactrim DS TAB] ED Physical Exam - General Limitations: No Limitations General appearance: alert, in no apparent distress - Head Head exam: Present: atraumatic, normocephalic - Eye Eye exam: Present: normal appearance - ENT ENT exam: Present: mucous membranes moist - Neck Neck exam: Present: normal inspection - Respiratory Respiratory exam: Present: normal lung sounds bilaterally. Absent: respiratory distress - Cardiovascular Cardiovascular Exam: Present: regular rate, normal rhythm. Absent: systolic murmur, diastolic murmur, rubs, gallop - GI/Abdominal GI/Abdominal exam: Present: soft, normal bowel sounds. Absent: distended, tenderness - Extremities Exam Extremities exam: Present: normal inspection, full ROM - Back Exam Back exam: Present: normal inspection, full ROM, CVA tenderness (L). Absent: CVA tenderness (R) - Neurological Exam Neurological exam: Present: alert, oriented X3, CN II-XII intact, normal gait - Psychiatric Psychiatric exam: Present: normal affect, normal mood - Skin Skin exam: Present: warm, dry, intact, normal color. Absent: rash ED Course Vital Signs 10/14/20 10/14/20 11:49 17:29 Temperature 98.1 F Pulse Rate 67 74 Respiratory 20 18 Rate Blood Pressure 133/86 Blood Pressure 128/88 [Right] O2 Sat by Pulse 96 99 Oximetry ED Medical Decision Making - Lab Data Result diagrams: 10/14/20 12:25 10/14/20 12:25 Laboratory Last Values WBC 7.1 K/mm3 (4.5-11.0) 10/14/20 12:25 RBC 4.47 M/mm3 (3.65-5.03) 10/14/20 12:25 Hgb 13.8 gm/dl (10.1-14.3) 10/14/20 12:25 Hct 41.0 % (30.3-42.9) 10/14/20 12:25 MCV 92 fl (79-97) 10/14/20 12:25 MCH 31 pg (28-32) 10/14/20 12:25 MCHC 34 % (30-34) 10/14/20 12:25 RDW 13.5 % (13.2-15.2) 10/14/20 12:25 Plt Count 305 K/mm3 (140-440) 10/14/20 12:25 Lymph % (Auto) 36.7 % (13.4-35.0) H 10/14/20 12:25 [place] % (Auto) 7.9 % (0.0-7.3) H 10/14/20 12:25 Eos % (Auto) 7.6 % (0.0-4.3) H 10/14/20 12:25 Baso % (Auto) 0.9 % (0.0-1.8) 10/14/20 12:25 Lymph # (Auto) 2.6 K/mm3 (1.2-5.4) 10/14/20 12:25 [place] # (Auto) 0.6 K/mm3 (0.0-0.8) 10/14/20 12:25 Eos # (Auto) 0.5 K/mm3 (0.0-0.4) H 10/14/20 12:25 Baso # (Auto) 0.1 K/mm3 (0.0-0.1) 10/14/20 12:25 Seg Neutrophils % 46.9 % (40.0-70.0) 10/14/20 12:25 Seg Neutrophils # 3.3 K/mm3 (1.8-7.7) 10/14/20 12:25 Sodium 141 mmol/L (137-145) 10/14/20 12:25 Potassium 4.3 mmol/L (3.6-5.0) 10/14/20 12:25 Chloride 104.5 mmol/L (98-107) 10/14/20 12:25 Carbon Dioxide 29 mmol/L (22-30) 10/14/20 12:25 Anion Gap 12 mmol/L 10/14/20 12:25 BUN 6 mg/dL (7-17) L 10/14/20 12:25 Creatinine 1.0 mg/dL (0.6-1.2) 10/14/20 12:25 Estimated GFR > 60 ml/min 10/14/20 12:25 BUN/Creatinine Ratio 6 % 10/14/20 12:25 Glucose 89 mg/dL (65-100) 10/14/20 12:25 Calcium 9.2 mg/dL (8.4-10.2) 10/14/20 12:25 Total Bilirubin 0.70 mg/dL (0.1-1.2) 10/14/20 12:25 AST 20 units/L (5-40) 10/14/20 12:25 ALT 14 units/L (7-56) 10/14/20 12:25 Alkaline Phosphatase 46 units/L (35-129) 10/14/20 12:25 Total Protein 6.0 g/dL (6.3-8.2) L 10/14/20 12:25 Albumin 4.1 g/dL (3.9-5) 10/14/20 12:25 Albumin/Globulin Ratio 2.2 % 10/14/20 12:25 Urine Color Yellow (Yellow) 10/14/20 Unknown Urine Turbidity Slightly-cloudy (Clear) 10/14/20 Unknown Urine pH 5.0 (5.0-7.0) 10/14/20 Unknown Ur Specific [place] 1.010 (1.003-1.030) 10/14/20 Unknown Urine Protein <15 mg/dl mg/dL (Negative) 10/14/20 Unknown Urine Glucose (UA) Neg mg/dL (Negative) 10/14/20 Unknown Urine Ketones Neg mg/dL (Negative) 10/14/20 Unknown Urine Blood Sm (Negative) 10/14/20 Unknown Urine Nitrite Neg (Negative) 10/14/20 Unknown Urine Bilirubin Neg (Negative) 10/14/20 Unknown Urine Urobilinogen < 2.0 mg/dL (<2.0) 10/14/20 Unknown Ur Leukocyte Esterase Lg (Negative) 10/14/20 Unknown Urine WBC (Auto) 26.0 /HPF (0.0-6.0) H 10/14/20 Unknown Urine RBC (Auto) 4.0 /HPF (0.0-6.0) 10/14/20 Unknown U Epithel Cells (Auto) < 1.0 /HPF (0-13.0) 10/14/20 Unknown Urine HCG, Qual Negative (Negative) 10/14/20 Unknown - Radiology Data Radiology results: report reviewed, image reviewed Fluoro Time In Minutes: ABDOMEN 1 VIEW(S) INDICATION / CLINICAL INFORMATION: flank pain. COMPARISON: None available. FINDINGS: TUBES / LINES: None. BOWEL GAS PATTERN: There is moderate fecal matter throughout the colon. No evidence for obstruction. FREE AIR / EXTRALUMINAL GAS: None seen. ADDITIONAL FINDINGS: No significant additional findings. IMPRESSION: Mild fecal retention Signer Name: Surjit Daniels Jr, MD Signed: 10/14/2020 3:32 PM Workstation Name: [id number] Transcribed By: TTR Dictated By: SURJIT DANIELS JR, MD Electronically Authenticated By: SURJIT DANIELS JR, MD Signed Date/Time: 10/14/20 1532 - Medical Decision Making This 59-year-old female presented with flank pain most likely secondary to acute cystitis. All labs are within normal limits. Vital signs are normal. Discussed all findings with patient. Discussed with patient to follow-up with primary care physician within 2 to 3 days Discussed with patient if she has any new or worsening symptoms please return to the ED immediately. Critical care attestation.: If time is entered above; I have spent that time in minutes in the direct care of this critically ill patient, excluding procedure time. ED Disposition Clinical Impression: Flank pain, Cystitis, UTI (urinary tract infection) Disposition: TO HOME OR SELFCARE Is pt being admited?: No Does the pt Need Aspirin: No Condition: Stable Instructions: Urinary Tract Infection, Adult, Flank Pain, Adult, [id number], Abdominal Pain (ED) Additional Instructions: Make sure to follow up with the primary care physician as discussed. Take all your medications as you've been prescribed. If you have any worsening symptoms or develop new symptoms please return to ED immediately. Prescriptions: Sulfamethoxazole/Trimethoprim [Bactrim DS TAB] 1 each PO BID 7 Days #14 tablet Ibuprofen [Motrin 800 MG tab] 800 mg PO Q8HR PRN #30 tablet PRN Reason: Pain, Moderate (4-6) Referrals: [facility] [Outside] - 3-5 Days [facility] [Outside] - 3-5 Days Forms: Work/School Release Form(ED) Time of Disposition: 16:21
--- NOTE | 2020-10-14 15:36 | XRay Report ---
ABDOMEN 1 VIEW(S) INDICATION / CLINICAL INFORMATION: flank pain. COMPARISON: None available. FINDINGS: TUBES / LINES: None. BOWEL GAS PATTERN: There is moderate fecal matter throughout the colon. No evidence for obstruction. FREE AIR / EXTRALUMINAL GAS: None seen. ADDITIONAL FINDINGS: No significant additional findings. IMPRESSION: Mild fecal retention Signer Name: Surjit Hwang Jr, MD Signed: 10/14/2020 3:32 PM Workstation Name: [id number]
[2020-10-14 17:30] VITALS: BP 128/88
== END 2020-10-14 17:30 | disposition home or self-care (01) ==
LOC: ED 11:25
DX: N39.0 Urinary tract infection, site not specified (principal); R10.9 Unspecified abdominal pain; Z98.890 Other specified postprocedural states; Z79.1 Long term (current) use of non-steroidal anti-inflammatories (NSAID); Z79.899 Other long term (current) drug therapy
CPT/HCPCS: 36415; 74018; 80053; 81001; 81025; 85025; 87076; 87086; 87186; 96372; 99283; J1885

== ENCOUNTER 2021-12-25 09:02 | Emergency (ER) | payer OTHER, MEDICARE ==
[2021-12-25 09:09] VITALS: BP 149/95
== END 2021-12-25 12:53 | disposition left against medical advice (07) ==
LOC: ED 09:02
DX: M79.18 Myalgia, other site (principal); Z53.21 Procedure and treatment not carried out due to patient leaving prior to being seen by health care provider

== ENCOUNTER 2022-01-30 12:19 | Emergency (ER) | payer OTHER, MEDICARE ==
[2022-01-30 12:40] VITALS: BP 164/78
[2022-01-30 13:17] LABS: Hematocrit 37.2 % (30.3-42.9); Hemoglobin 12.8 gm/dl (10.1-14.3); Mean Corpuscular HGB Conc 34 % (30-34); Mean Corpuscular Volume 88 fl (79-97); Platelet Count 284 K/mm3 (140-440); Red Blood Count 4.23 M/mm3 (3.65-5.03); Red Cell Distribution Width 13.6 % (13.2-15.2)
[2022-01-30 13:30] LABS: Alanine Aminotransferase 15 units/L (7-56); BUN/Creatinine Ratio 8; Blood Urea Nitrogen 9 mg/dL (7-17); Calcium 9.1 mg/dL (8.4-10.2); Hemolysis Index 11
--- NOTE | 2022-01-30 20:17 | Electrocardiograph Report ---
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
== END 2022-01-30 17:27 | disposition left against medical advice (07) ==
LOC: ED 12:19
DX: R51.9 Headache, unspecified (principal); Z53.21 Procedure and treatment not carried out due to patient leaving prior to being seen by health care provider
CPT/HCPCS: 36415; 80053; 84484; 85027; 93005